=== PATIENT | male | born 1960 | race Caucasian/White ===

== ENCOUNTER 2022-06-18 22:39 | Emergency (ER) | payer MEDICARE, MEDICAID ==
[2022-06-18] MEDS ORDERED: Amoxicillin/Clavulanate K 875-125 MG Tab ONE (23:45)
== END 2022-06-18 23:40 | disposition home or self-care (01) ==
LOC: LB.ED 22:39
DX: S80.862A Insect bite (nonvenomous), left lower leg, initial encounter (principal); L03.116 Cellulitis of left lower limb; W57.XXXA Bitten or stung by nonvenomous insect and other nonvenomous arthropods, initial encounter
CPT/HCPCS: 99281; A9270; 99282

== ENCOUNTER 2022-06-29 21:16 | Emergency (ER) | payer MEDICARE, MEDICAID ==
[2022-06-29] MEDS ORDERED: Gabapentin 100 MG Cap ONE (21:30)
== END 2022-06-29 21:40 | disposition home or self-care (01) ==
LOC: LB.ED 21:16
DX: M79.2 Neuralgia and neuritis, unspecified (principal)
CPT/HCPCS: 99283; A9270-GY